=== PATIENT | female | born 1995 | race Caucasian/White ===

== ENCOUNTER 2016-09-25 20:09 | Emergency (ER) | payer BC ==
[~2016-09-25] VITALS: Ht 167.6 cm; Wt 117.9 kg
[~2016-09-25 20:09] MED LIST: BENTYL10 MG PO; BIRTH CONTROL1 EAC1 PO; DOXYCYCLINE MO100 MG PO; FLEXERIL5 MG PO; MACROBID100 M1 PO; MOTRIN800 MG PO; NKHM; PEPCID20 MG PO; ROBAXIN500 MG PO
[2016-09-25 21:21] LABS: BILIRUBIN NEGATIVE (NEGATIVE); BLOOD 3+ (NEGATIVE); CLARITY CLEAR (CLEAR); COLOR YELLOW (YELLOW); GLUCOSE NEGATIVE (NEGATIVE); KETONE NEGATIVE (NEGATIVE); LEUKO ESTERASE 1+ (NEGATIVE); NITRITE NEGATIVE (NEGATIVE); PH 6.5 (5.0-9.0); PROTEIN NEGATIVE (NEGATIVE); SPECIFIC GRAVITY 1.015 (1.005-1.030); UROBILINOGEN 0.2 E.U./dl (0.2-1.0)
[2016-09-25 21:30] LABS: URINE REFLEX COMMENT YES (NO)
[2016-09-25 21:31] LABS: BACTERIA 1+
[2016-09-25 22:18] LABS: BASO % 0.2 % (0.0-1.0); EOS # 0.1 10*3/uL (0.0-0.4); EOS % 0.7 % (1.0-4.0); HEMOGLOBIN 12.2 g/dl (12.0-16.0); IG # 0.1 10*3/uL (0.0-0.1); LYMPH # 2.5 10*3/uL (1.3-4.4); MEAN CELL VOLUME 84.5 fl (81.0-99.0); MEAN CORPUSCULAR HGB 28.6 pg (27.0-31.0); MEAN CORPUSCULAR HGB CONC 33.9 g/dl (33.0-37.0); MEAN PLATELET VOLUME 9.8 fl (9.6-12.3); MONO # 0.7 10*3/uL (0.1-1.0); MONO % 4.2 % (3.0-9.0); NEUT % 80.4 % (47.0-73.0); PLATELET COUNT AUTOMATED 304 10*3/uL (130-400); RED BLOOD COUNT 4.26 10*6/uL (4.10-5.10); RED CELL DISTRI WIDTH 13.2 % (0-14.5); WHITE BLOOD COUNT 17.5 10*3/uL (4.8-10.8)
[2016-09-25 22:33] LABS: ALBUMIN 3.6 gm/dl (3.1-4.5); ALKALINE PHOSPHATASE 88 U/L (45-117); BILIRUBIN, TOTAL 0.4 mg/dl (0.2-1.0); BUN 12 mg/dl (7-24); CARBON DIOXIDE 24 mmol/L (21-32); CHLORIDE 105 mmol/L (98-107); EST GLOM FILT AFRICAN AMERICAN > 60 ml/min; GLUCOSE 103 mg/dL (65-99); POTASSIUM 3.4 mmol/L (3.5-5.1); SGOT/AST 18 IU/L (3-35); SGPT/ALT 27 U/L (12-78); SODIUM 137 mmol/L (136-145); TOTAL PROTEIN 7.3 gm/dL (6.4-8.2)
[2016-09-25] MEDS ORDERED: MACROBID100 M1 PO (22:40)
[2016-09-25] MEDS ORDERED: ZOFRAN ODT4 MG SL (22:40)
[2016-09-25 22:51] VITALS: BP 125/69
== END 2016-09-25 23:30 | disposition home or self-care (01) ==
LOC: ED 20:09
PROVIDERS: Physician Assistant
DX: N30.01 Acute cystitis with hematuria (principal)

== ENCOUNTER 2017-03-19 22:59 | Emergency (ER) | payer BC ==
[~2017-03-19] VITALS: Ht 165.1 cm; Wt 127.0 kg
[~2017-03-19 22:59] MED LIST changes: +ZOFRAN ODT4 MG SL
[2017-03-19 23:44] LABS: BILIRUBIN NEGATIVE (NEGATIVE); BLOOD NEGATIVE (NEGATIVE); CLARITY SL CLOUDY (CLEAR); COLOR YELLOW (YELLOW); GLUCOSE NEGATIVE (NEGATIVE); KETONE NEGATIVE (NEGATIVE); LEUKO ESTERASE NEGATIVE (NEGATIVE); NITRITE NEGATIVE (NEGATIVE); SPECIFIC GRAVITY 1.015 (1.005-1.030)
[2017-03-19 23:49] LABS: EPITHELIAL CELLS 35-40
[2017-03-19 23:50] LABS: WBC 0-2 wbc/hpf (0-5)
[2017-03-20 00:10] LABS: BASO % 0.2 % (0.0-1.0); EOS # 0.1 10*3/uL (0.0-0.4); HEMATOCRIT 39.7 % (37.0-47.0); HEMOGLOBIN 13.3 g/dl (12.0-16.0); LYMPH # 1.6 10*3/uL (1.3-4.4); MEAN CELL VOLUME 83.1 fl (81.0-99.0); MEAN CORPUSCULAR HGB 27.8 pg (27.0-31.0); MEAN CORPUSCULAR HGB CONC 33.5 g/dl (33.0-37.0); MEAN PLATELET VOLUME 9.9 fl (9.6-12.3); MONO # 0.5 10*3/uL (0.1-1.0); MONO % 3.7 % (3.0-9.0); NEUT # 10.9 10*3/uL (2.3-7.9); NEUT % 82.8 % (47.0-73.0); PLATELET COUNT AUTOMATED 343 10*3/uL (130-400); RED BLOOD COUNT 4.78 10*6/uL (4.10-5.10); RED CELL DISTRI WIDTH 13.1 % (0-14.5); WHITE BLOOD COUNT 13.1 10*3/uL (4.8-10.8)
[2017-03-20 00:25] LABS: ALBUMIN 3.4 gm/dl (3.1-4.5); ALKALINE PHOSPHATASE 96 U/L (45-117); BUN 8 mg/dl (7-24); CHLORIDE 105 mmol/L (98-107); CREATININE 0.74 mg/dL (0.55-1.02); LIPASE 87 U/L (73-393); POTASSIUM 3.7 mmol/L (3.5-5.1); SGOT/AST 24 IU/L (3-35); SGPT/ALT 40 U/L (12-78); SODIUM 137 mmol/L (136-145); TOTAL PROTEIN 7.5 gm/dL (6.4-8.2)
[2017-03-20 00:32] LABS: BETA-HCG, QUANT < 1.0 mIU/mL (1-3)
[2017-03-20 01:51] VITALS: BP 110/56
[2017-03-20] MEDS ORDERED: REGLAN5 MG PO (02:05)
[2017-03-20] MEDS ORDERED: ZOFRAN ODT4 MG SL (02:22)
== END 2017-03-20 02:31 | disposition home or self-care (01) ==
LOC: ED 22:59
PROVIDERS: Emergency Medicine Emergency Medical Services
DX: K59.8 Other specified functional intestinal disorders (principal); R11.0 Nausea; Z87.440 Personal history of urinary (tract) infections

== ENCOUNTER 2017-07-05 11:50 | Emergency (ER) | payer BC ==
[~2017-07-05] VITALS: Ht 165.1 cm; Wt 121.1 kg
[~2017-07-05 11:50] MED LIST changes: +REGLAN5 MG PO
[2017-07-05 11:52] VITALS: BP 122/61
[2017-07-05 12:36] LABS: BILIRUBIN NEGATIVE (NEGATIVE); BLOOD NEGATIVE (NEGATIVE); CLARITY SL CLOUDY (CLEAR); COLOR YELLOW (YELLOW); GLUCOSE NEGATIVE (NEGATIVE); KETONE NEGATIVE (NEGATIVE); LEUKO ESTERASE 1+ (NEGATIVE); NITRITE NEGATIVE (NEGATIVE); UROBILINOGEN 0.2 E.U./dl (0.2-1.0)
[2017-07-05 12:49] LABS: BACTERIA 2+
[2017-07-05] MEDS ORDERED: FLONASE ALLERG9.9 ML NAS (13:03)
[2017-07-05] MEDS ORDERED: ROBITUSSIN5 ML PO (13:03)
== END 2017-07-05 13:44 | disposition home or self-care (01) ==
LOC: ED 11:50
PROVIDERS: Emergency Medicine
DX: N39.3 Stress incontinence (female) (male) (principal); E66.01 Morbid (severe) obesity due to excess calories; Z68.41 Body mass index [BMI] 40.0-44.9, adult

== ENCOUNTER 2017-11-17 16:43 | Emergency (ER) | payer BC ==
[~2017-11-17] VITALS: Ht 165.1 cm; Wt 129.3 kg
[~2017-11-17 16:43] MED LIST changes: +FLONASE ALLERG9.9 ML NAS; +ROBITUSSIN5 ML PO
[2017-11-17 16:44] VITALS: BP 134/73
[2017-11-17] MEDS ORDERED: AUGMENTIN 875875 MG PO (17:12)
== END 2017-11-17 17:13 | disposition home or self-care (01) ==
LOC: ED 16:43
DX: J32.9 Chronic sinusitis, unspecified (principal); E66.01 Morbid (severe) obesity due to excess calories; Z68.41 Body mass index [BMI] 40.0-44.9, adult; Z79.899 Other long term (current) drug therapy

== ENCOUNTER 2018-09-28 12:54 | Emergency (ER) | payer BC ==
[~2018-09-28] VITALS: Ht 170.1 cm; Wt 124.7 kg
[~2018-09-28 12:54] MED LIST changes: +AUGMENTIN 875875 MG PO
[2018-09-28 12:56] VITALS: BP 142/71
[2018-09-28] MEDS ORDERED: LIDEX 0.05% CRE15 GM T (13:23)
[2018-09-28] MEDS ORDERED: PREDNISONE20 M1 PO (13:23)
== END 2018-09-28 13:19 | disposition home or self-care (01) ==
LOC: ED 12:54
DX: L25.9 Unspecified contact dermatitis, unspecified cause (principal)

== ENCOUNTER 2020-05-06 09:50 | Emergency (ER) | payer BC ==
[~2020-05-06] VITALS: Ht 170.1 cm; Wt 130.2 kg
[~2020-05-06 09:50] MED LIST changes: +LIDEX 0.05% CRE15 GM T; +PREDNISONE20 M1 PO
[2020-05-06 10:01] VITALS: BP 145/97
[2020-05-06 10:44] LABS: BILIRUBIN Negative (Negative); BLOOD Negative (Negative); CLARITY Clear (Clear); COLOR Yellow (Yellow); GLUCOSE Negative (Negative); KETONE Negative (Negative); LEUKO ESTERASE Trace (Negative); NITRITE Negative (Negative); PH 6.5 (4.5-8.0); SPECIFIC GRAVITY 1.025 (1.001-1.030); UROBILINOGEN 0.2 E.U./dl (0.0-1.0)
[2020-05-06 10:54] LABS: BACTERIA 3+; CALCIUM OXALATE CRYSTALS Trace; EPITHELIAL CELLS 16-20
[2020-05-06] MEDS ORDERED: NAPROXEN250 MG PO (11:15)
[2020-05-06] MEDS ORDERED: CYCLOBENZAPRINE10 MG PO (11:15)
[2020-05-06] MEDS ORDERED: TYLENOL325 M1 PO (11:15)
== END 2020-05-06 11:20 | disposition home or self-care (01) ==
LOC: ED 09:50
PROVIDERS: Emergency Medicine
DX: S39.92XA Unspecified injury of lower back, initial encounter (principal); E66.01 Morbid (severe) obesity due to excess calories; J45.909 Unspecified asthma, uncomplicated; Z68.41 Body mass index [BMI] 40.0-44.9, adult; X50.0XXA Overexertion from strenuous movement or load, initial encounter; Y93.89 Activity, other specified; Y92.89 Other specified places as the place of occurrence of the external cause; Y99.8 Other external cause status

== ENCOUNTER 2023-02-14 10:36 | Emergency (ER) | payer BC ==
[~2023-02-14] VITALS: Ht 170.1 cm; Wt 122.5 kg
[~2023-02-14 10:36] MED LIST changes: +CYCLOBENZAPRINE10 MG PO; +NAPROXEN250 MG PO; +TYLENOL325 M1 PO
[2023-02-14 11:25] VITALS: BP 123/70
[2023-02-14] MEDS ORDERED: MAG GLYCINATE100 MG PO (11:28)
[2023-02-14] MEDS ORDERED: ZINC50 M4 PO (11:28)
[2023-02-14 12:21] LABS: ALKALINE PHOSPHATASE 85 U/L (46-116); CHLORIDE 104 mmol/L (98-107); POTASSIUM 4.7 mmol/L (3.4-5.1); SGPT/ALT 29 U/L (5-49); TOTAL PROTEIN 7.3 gm/dL (6.0-8.0)
[2023-02-14 12:22] LABS: BUN < 5 mg/dl (9-23)
[2023-02-14 12:23] LABS: LIPASE 30 U/L (12-53)
[2023-02-14 12:27] LABS: BASO % 0.2 % (0.0-1.0); EOS # 0.2 10*3/uL (0.0-0.4); EOS % 1.9 % (1.0-4.0); LYMPH # 1.8 10*3/uL (1.3-4.4); MEAN CELL VOLUME 88.8 fl (81.0-99.0); MEAN CORPUSCULAR HGB 28.5 pg (27.0-31.0); MEAN CORPUSCULAR HGB CONC 32.1 g/dl (33.0-37.0); MEAN PLATELET VOLUME 9.4 fl (9.6-12.3); MONO # 0.5 10*3/uL (0.1-1.0); MONO % 4.3 % (3.0-9.0); NEUT # 9.6 10*3/uL (2.3-7.9); NEUT % 78.3 % (47.0-73.0); PLATELET COUNT AUTOMATED 367 10*3/uL (130-400); RED BLOOD COUNT 4.84 10*6/uL (4.10-5.10); WHITE BLOOD COUNT 12.3 10*3/uL (4.8-10.8)
[2023-02-14 12:43] LABS: BILIRUBIN Negative (Negative); BLOOD 2+ (Negative); CLARITY Cloudy (Clear); COLOR Yellow (Yellow); GLUCOSE Negative (Negative); KETONE Negative (Negative); LEUKO ESTERASE 2+ (Negative); NITRITE Negative (Negative); PH 5.5 (4.5-8.0); UROBILINOGEN 0.2 E.U./dl (0.0-1.0)
[2023-02-14 12:50] LABS: BACTERIA 2+; EPITHELIAL CELLS TNTC; WBC TNTC wbc/hpf (0-5)
[2023-02-14] MEDS ORDERED: MACROBID100 M1 PO (14:38)
[2023-02-14] MEDS ORDERED: ONDANSETRON4 MG SL (14:38)
== END 2023-02-14 14:46 | disposition home or self-care (01) ==
LOC: ED 10:36
PROVIDERS: Nurse Practitioner Family
DX: N39.0 Urinary tract infection, site not specified (principal); R11.2 Nausea with vomiting, unspecified; R19.7 Diarrhea, unspecified

== ENCOUNTER → 2023-04-29 | Outpatient (CLI) | payer BC ==
[~2023-04-29] MED LIST changes: +MAG GLYCINATE100 MG PO; +ONDANSETRON4 MG SL; +ZINC50 M4 PO
== END | disposition home or self-care (01) ==
LOC: RAD 14:28 → US 15:00
PROVIDERS: ATTEND Nurse Practitioner Family
DX: R22.1 Localized swelling, mass and lump, neck (principal)

== ENCOUNTER 2023-05-16 08:30 | Emergency (ER) | payer BC ==
[~2023-05-16] VITALS: Ht 170.1 cm; Wt 121.6 kg
[2023-05-16 08:41] VITALS: BP 123/53
[2023-05-16] MEDS ORDERED: METFORMIN HYD1000 MG PO (08:44)
[2023-05-16] MEDS ORDERED: Ketorolac Tromethamine 15 MG/ML VIAL IV ONE (09:00)
[2023-05-16] MEDS ORDERED: SODIUM CHLORIDE 0.9% 1,000 ML IV ONE (09:00)
[2023-05-16 09:15] LABS: BASO % 0.3 % (0.0-1.0); EOS # 0.3 10*3/uL (0.0-0.4); EOS % 2.3 % (1.0-4.0); HEMATOCRIT 41.6 % (37.0-47.0); LYMPH % 18.2 % (27.0-41.0); MEAN CELL VOLUME 87.6 fl (81.0-99.0); MEAN CORPUSCULAR HGB 28.6 pg (27.0-31.0); MEAN CORPUSCULAR HGB CONC 32.7 g/dl (33.0-37.0); MEAN PLATELET VOLUME 9.3 fl (9.6-12.3); MONO # 0.5 10*3/uL (0.1-1.0); MONO % 4.5 % (3.0-9.0); NEUT # 8.1 10*3/uL (2.3-7.9); NEUT % 74.3 % (47.0-73.0); PLATELET COUNT AUTOMATED 352 10*3/uL (130-400); RED BLOOD COUNT 4.75 10*6/uL (4.10-5.10); RED CELL DISTRI WIDTH 11.9 % (0-14.5); WHITE BLOOD COUNT 10.8 10*3/uL (4.8-10.8)
[2023-05-16] MEDS ORDERED: IOHEXOL 300 MG/ML 100 ML VIAL IV ONE (09:20)
[2023-05-16 09:36] LABS: ALKALINE PHOSPHATASE 69 U/L (46-116); BUN 7 mg/dl (9-23); CHLORIDE 105 mmol/L (98-107); SGPT/ALT 48 U/L (5-49)
[2023-05-16 09:37] LABS: BILIRUBIN Negative (Negative); BLOOD Trace-Intact (Negative); CLARITY Clear (Clear); COLOR Yellow (Yellow); GLUCOSE Negative (Negative); KETONE Negative (Negative); LEUKO ESTERASE Negative (Negative); NITRITE Negative (Negative); PH 5.5 (4.5-8.0); SPECIFIC GRAVITY 1.025 (1.001-1.030); UROBILINOGEN 0.2 E.U./dl (0.0-1.0)
[2023-05-16 10:12] LABS: BACTERIA 3+
[2023-05-16] MEDS ORDERED: SEPTDS PO (11:06)
[2023-05-16] MEDS ORDERED: MELOXICAM15 MG PO (11:06)
== END 2023-05-16 11:17 | disposition home or self-care (01) ==
LOC: ED 08:30
PROVIDERS: Emergency Medicine
DX: N39.0 Urinary tract infection, site not specified (principal); E11.9 Type 2 diabetes mellitus without complications